=== PATIENT | male | born 1980 ===

== ENCOUNTER 2020-06-01 09:48 | Day surgery (SDC) | payer OTHER ==
[~2020-06-01 09:48] MED LIST: VASOTEC20 M1 PO
== END 2020-06-01 19:28 | disposition home or self-care (01) ==
LOC: CIR.AMB 09:48
PROVIDERS: ATTEND Orthopaedic Surgery
DX: S46.122A Laceration of muscle, fascia and tendon of long head of biceps, left arm, initial encounter (principal); Z20.822 Contact with and (suspected) exposure to COVID-19